=== PATIENT | male | born 1990 | race Caucasian/White ===

== ENCOUNTER 2021-10-14 12:24 | Emergency (ER) | payer SELFPAY ==
[~2021-10-14] VITALS: Ht 170.2 cm; Wt 83.0 kg
[2021-10-14] MEDS ORDERED: ONDANSETRON HCL 4MG/2ML INJ IV STA (13:32)
[2021-10-14] MEDS ORDERED: SODIUM CHLORIDE 0.9% 1,000 ML IV ONE (13:45)
[2021-10-14 13:59] LABS: BASOPHILS % 0.5 % (0.0-2.0); EOSINOPHILS % 0.3 % (0.0-5.0); HEMATOCRIT. 44.1 % (42.0-52.0); HEMOGLOBIN. 15.1 g/dL (14.0-18.0); LYMPHOCYTES % 26.9 % (20.0-50.0); MEAN CORPUSCULAR HEMOGLOBIN 29.9 pg (28.0-32.0); MEAN CORPUSCULAR VOLUME 87.5 fL (80.0-94.0); MEAN PLATELET VOLUME 7.7 fl (7.4-10.4); MONOCYTES % 3.6 % (2.0-8.0); NEUTROPHILS % 68.7 % (40.0-76.0); PLATELET 280 x1000/uL (130-400); RED BLOOD CELL COUNT 5.04 mill/uL (4.7-6.1); RED CELL DISTRIBUTION WIDTH 13.8 % (11.6-14.6)
[2021-10-14 14:04] LABS: CHLORIDE 107 mEq/L (98-107)
[2021-10-14 14:12] LABS: ETHANOL BLOOD 201 mg/dL
[2021-10-14] MEDS ORDERED: NALO4SPR BOTHNSTRLS (17:17)
[2021-10-14 18:06] VITALS: BP 122/98
[2021-10-14] MEDS ORDERED: ONDANSETRON 4MG ODT PO ONE (18:15)
== END 2021-10-14 18:00 | disposition home or self-care (01) ==
LOC: ER 12:45
DX: F10.129 Alcohol abuse with intoxication, unspecified (principal); Y90.7 Blood alcohol level of 200-239 mg/100 ml; T40.601A Poisoning by unspecified narcotics, accidental (unintentional), initial encounter; Y92.9 Unspecified place or not applicable
CPT/HCPCS: 36415; 70450; 80053; 80320; 85025; 96361; 96374; 99284; J2405; J7030; Q0162; G0480